=== PATIENT | female | born 1990 | race Hispanic/Latino ===

== ENCOUNTER 2022-12-07 20:34 | Emergency (ER) | payer SELFPAY ==
[~2022-12-07] VITALS: Ht 175.3 cm; Wt 85.0 kg
[2022-12-07 21:15] VITALS: BP 144/83
[2022-12-07 22:14] LABS: BASO% 0.4 % (0-3); EOS% 2.3 % (0-8); HEMATOCRIT 40.8 % (37.0-47.0); HEMOGLOBIN 12.8 g/dl (12.0-16.0); IMMATURE GRANULOCYTES 0.2 % (0.0-5.0); LYMPH% 23.1 % (15-41); MEAN CELL VOLUME 81.3 fL CALC (80.0-100.0); MEAN CORPUSCULAR HGB 25.5 pG CALC (26.0-32.0); MEAN CORPUSCULAR HGB CONC 31.4 g/dL CAL (32.0-36.0); MONO% 7.1 % (2-13); NEUT# 7.49 thou/uL (2.00-7.15); NEUT% 66.9 % (42-76); RED BLOOD COUNT 5.02 mill/uL (4.20-5.60); RED CELL DISTRI WIDTH 13.1 % (11.5-15.5)
[2022-12-07 22:18] LABS: URINE BILIRUBIN - DIPSTICK NEGATIVE (NEGATIVE); URINE BLOOD DIPSTICK NEGATIVE (NEGATIVE); URINE COLOR YELLOW; URINE GLUCOSE - DIPSTICK NEGATIVE (NEGATIVE); URINE KETONE NEGATIVE (NEGATIVE); URINE LEUK ESTERASE NEGATIVE (NEGATIVE); URINE PROTEIN - DIPSTICK NEGATIVE (NEG-TRACE); URINE SPECIFIC GRAVITY <=1.005; URINE UROBILINOGEN - DIPSTICK 0.2 E.U./dL (0.2)
[2022-12-07 22:19] LABS: URINE NITRITE - DIPSTICK NEGATIVE (Negative)
[2022-12-07 22:29] LABS: ALBUMIN 4.8 g/dL (3.2-5.0); ALKALINE PHOSPHATASE 57 u/l (38-126); AMYLASE 108 u/l (30-110); ANION GAP 13 (6-22 (CALC)); BILIRUBIN, TOTAL 0.2 mg/dL (0.02-1.3); BUN 9 mg/dL (7-17); BUN/CREATININE RATIO 13 (12-20 (CALC)); CARBON DIOXIDE 27 mmol/l (22-30); CHLORIDE 103 mmol/l (95-108); CREATININE 0.7 mg/dL (0.5-1.0); GFR FOR AFR.AMER. > 60 ML/MIN (>=60 (CALC)); GFR OTHER RACES > 60 ML/MIN (>=60 (CALC)); LIPASE 246 u/l (23-300); POTASSIUM 3.3 mmol/l (3.5-5.1); SGOT/AST 21 u/l (14-36); SODIUM 140 mmol/l (137-146); TOTAL PROTEIN 8.2 g/dL (6.3-8.2)
[2022-12-07 23:17] VITALS: BP 113/76
[2022-12-07 23:30] VITALS: BP 116/77
[2022-12-07 23:45] VITALS: BP 118/69
[2022-12-08] VITALS (13 sets, daily range): BP systolic 93–142; BP diastolic 53–78
[2022-12-08] MEDS ORDERED: MIRALAX17 GM PO (03:08)
== END 2022-12-08 03:20 | disposition home or self-care (01) | DRG 392 ==
LOC: ED 20:34
PROVIDERS: Emergency Medicine
DX: K59.00 Constipation, unspecified (principal)
CPT/HCPCS: Q9967